=== PATIENT | female | born 1975 | race Caucasian/White ===

== ENCOUNTER → 2016-09-20 | Emergency (ER) | payer SELFPAY ==
[~2016-09-20] MED LIST: Iopamidol 370 76% 100 ML VIAL ONE; Ketorolac Tromethamine 30 MG/ML VIAL ONE
[2016-09-20 22:45] LABS: #Basophils 0.1 thou/uL (0.0-0.2); #Monocytes 0.6 thou/uL (0.11-0.59); #Neutrophils 8.5 thou/uL (1.40-6.50); %Basophils 0.5 % (0.0-1.0); %Eosinophils 0.1 % (0.0-10.0); %Lymphocytes 24.8 % (21.0-51.0); %Monocytes 5.1 % (0.0-10.0); Hematocrit 43.8 % (36.0-47.0); Mean Platelet Volume 7.6 fL (7.4-10.4); Red Blood Cell (RBC) Count 4.82 mill/uL (4.20-5.40); White Blood Cell (WBC) Count 12.2 thou/uL (4.8-10.8)
[2016-09-20 22:57] LABS: ALT (SGPT) 19 U/L (0-55); AST (SGOT) 19 U/L (5-34); Alkaline Phosphatase 62 U/L (40-150); Anion Gap 15 mmol/L (10-20); BUN (Urea Nitrogen) 11 mg/dL (7.0-18.7); Bilirubin, Total 0.2 mg/dL (0.2-1.2); Calc. Creatinine Clearance 0 mL/min (70-130); Calcium 8.9 mg/dL (7.8-10.44); Carbon Dioxide 20 mmol/L (22-29); Chloride 108 mmol/L (98-107); Estimated GFR-MDRD 77; Globulin 3.2 g/dL (2.4-3.5); Protein, Total 6.8 g/dL (6.0-8.3)
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
== END ==
LOC: NAV ERS 22:08
DX: S20.219A Contusion of unspecified front wall of thorax, initial encounter (principal); S30.1XXA Contusion of abdominal wall, initial encounter; F41.9 Anxiety disorder, unspecified; F32.9 Major depressive disorder, single episode, unspecified; F17.210 Nicotine dependence, cigarettes, uncomplicated; V89.2XXA Person injured in unspecified motor-vehicle accident, traffic, initial encounter
CPT/HCPCS: 70450; 71260; 72125; 74177; 80053; 80307; 85025; 96374; G0479; J1885